=== PATIENT | female | born 1950 | race Caucasian/White ===

== ENCOUNTER → 2020-07-19 08:32 | Outpatient (CLI) | payer MEDICARE, SELFPAY ==
--- NOTE | ~2020-07-19 | US_ITS ---
EXAMINATION: US abdomen complete DATE: 07/19/2020 09:11 INDICATION: Family history of malignant neoplasm of pancreas and digestive organs. TECHNIQUE: Multiple grayscale and Doppler ultrasound images of the abdomen were obtained. COMPARISON: None FINDINGS: The visualized portions of the head and body of the pancreas are normal. The liver is carlee l without focal lesion. There is normal flow in main portal vein. The gallbladder is normal in size. No gallstones or gallbladder wall thickening. There was no sonographic Pate sign. The common duct i s normal and measures 4 mm. The spleen is normal in size. The kidneys are normal in size. IMPRESSION: 1. Normal complete abdomen ultrasound. Reviewed, dictated and finalized at location A.
== END ==
PROVIDERS: PCP Physician Assistant; Visit Provider Physician Assistant
DX: Z80.0 Family history of malignant neoplasm of digestive organs (principal)
CPT/HCPCS: 76700

== ENCOUNTER → 2021-02-09 13:20 | Outpatient (CLI) | payer MEDICARE, SELFPAY ==
--- NOTE | ~2021-02-09 | MM_ITS ---
EXAMINATION: MM screening lucio LT w david HISTORY: Screening TECHNIQUE: Craniocaudal and mediolateral oblique 3-D tomosynthesis images were obtained and synthetic 2-D images were generated. CAD analysis was submitted and interpreted. COMPARISON: Comparison to multiple prior studies sequentially, with oldest reviewed study dated 07/21. BREAST PARENCHYMAL COMPOSITION: There are scattered areas of fibroglandular density. FINDINGS: There are stable benign-appearing left breast calcifications. There is no evidence of suspi cious mass, calcification, or architectural distortion to suggest malignancy in either breast. There has been no suspicious interval change. IMPRESSION: 1. No mammographic evidence of malignancy. 2. Recommend routine screening mammography in one year. BI-RADS Category 2: Benign finding(s). Reviewed, dictated and finalized at location A.
== END ==
PROVIDERS: PCP Physician Assistant; Visit Provider Physician Assistant
DX: Z12.31 Encounter for screening mammogram for malignant neoplasm of breast (principal)
CPT/HCPCS: 77063; 77067

== ENCOUNTER 2021-08-05 12:38 | Outpatient (CLI) | payer MEDICARE, SELFPAY ==
--- NOTE | ~2021-08-05 | MR_ITS ---
EXAMINATION: MR breast BI wo con INDICATION: Patient with history of right mastectomy with implant reconstruction and possible implant rupture. TECHNIQUE: Axial T2 FSE ASSET, axial VIBRANT, Sagittal T2 FSE, Sagittal T2 STIR silicone SAT, Sagitta l STIR Water suppression COMPARISON: None FINDINGS: RIGHT BREAST: There are changes of right mastectomy with implant reconstruction. There is intracapsul ar rupture of the breast implant. No definite extracapsular silicone is identified. LEFT BREAST: Within the limitations of noncontrast examination, left breast is unremarkable. No evide nce of signal abnormalities in the axillary or internal mammary node distributions.] IMPRESSION: 1. Intracapsular rupture of the right breast implant. BI-RADS Category 2: Benign finding(s). Reviewed, dictated and finalized at location A.
== END 2021-08-05 12:39 | disposition home or self-care (01) ==
PROVIDERS: PCP Physician Assistant; Visit Provider Surgery Plastic and Reconstructive Surgery
DX: T85.49XA Other mechanical complication of breast prosthesis and implant, initial encounter (principal)
CPT/HCPCS: 77047

== ENCOUNTER 2021-09-17 01:17 | Day surgery (SDC) | payer MEDICARE, SELFPAY ==
[2021-09-09 14:16] VITALS: BMI 31.5
--- NOTE | 2021-09-09 14:55 | PC.NURSE ---
Report to the Outpatient Waiting Room, entrance under the green pavilion located off [facility], at time _0830__ on date _09/17/21__. OR Time: _1030___. - You and your visitor will be asked a series of questions to screen for COVID 19 for your protection. - A mask is required within the hospital. - Only one visitor is allowed at this time. Patient visitors will be guided where to wait when not with patient. Preoperative COVID Testing Requirements: No COVID Test needed if: (proof is required; if not received patient will have Rapid Test prior to entry) - Patient has received COVID Vaccine at least 14 days prior to procedure date or - Patient has positive COVID test result within last 90 days of surgery date. COVID Test needed if above criteria is not met If not COVID vaccinated a COVID test must be conducted within 72 hours of surgery and patient is asked to isolate self from time of testing until procedure. You will go to the [facility] for your COVID testing. The [facility] site is located at the corner of [address] from [facility]. You will only be called if COVID results are positive and your surgeon may reschedule your elective surgery date. Patients may have clear liquids (water, carbonated beverages, clear teas, apple juice) until 3 hours prior to surgery with a maximum of 20 ounces. - No food from midnight until time of surgery - Infants may have breast milk until 4 hours before surgery, formula 6 hours prior to surgery. - Children will be allowed to drink immediately following surgery. If applicable, please bring a bottle or sippy cup to assist with drinking. Juice, water, soda, and popsicles are readily available. For infants on formula, please bring formula the day of surgery. Pacifiers are allowed. Take the following medications with a SIP of water the morning of surgery: NONE Medications to discontinue per physician __PT STATS ALREADY STOPPING ASA TUESDAY-09/06/21 Date to take last dose Please no make-up, nail jordanian, hairspray, perfume, deodorant, or body powder the day of surgery. No jewelry (including any body piercings) or valuables the day of surgery, leave them at home. Please take a shower or bath the night before, or the morning of, surgery with an antibacterial soap. Wear comfortable, loose fitting clothing. Children are encouraged to wear pajamas. - Jewelry must be removed prior to entering the operating room. Rings and piercings that are not removed may be cut off. - The hospital will not accept responsibility for valuables. - Please leave all valuables, including medications, at home the day of surgery. If you are going home after surgery, a licensed box truck driver must drive you home. - NO public transportation without another adult. - We recommend that an adult stay with you for 24 hours following discharge. - We also recommend that you do not drive, make important decision, drink alcoholic beverages, or take any drugs that were not prescribed by your health care provider for at least 24 hours after your discharge time. For Pediatric surgeries, we recommend two adults accompany the child home (only one inside the building at this time). Follow any additional instructions given to you from your surgeon. Telephone instructions given to PT and asked if any additional questions and then verbalized understanding. Patient advised to call surgeon office or pre surgery nurse liaison [phone] if any additional questions.
[2021-09-17] VITALS (8 sets, daily range): BP systolic 121–145; BP diastolic 70–93; PULSE 67–100; RESP 14–16; TEMP 35.9–36.9; O2SAT 96–100
[2021-09-17 09:15] LABS: Urine Cotinine NEGATIVE
--- NOTE | 2021-09-17 09:32 | WPDANESEPPF ---
Anes - Initial Pre Proc Eval Procedure: Operation Date: 09/17/21 10:30 Proposed Procedures p Removal Bilateral Breast Implants - Yayo Cameron MD s Left Breast Reduction - Yayo Cameron MD Date/Time: 09/17/21 09:32 Surgeon: Yayo Cameron MD Pre Op Diagnosis: right breast implant rupture Patient Data Age: 71 Gender: F Height: 1.59 m Weight: 79.54 kg Allergies Allergy/AdvReac Type Severity Reaction Status Date / Time nalbuphine Allergy Severe Hallucinati Verified 09/17/21 09:12 ng venlafaxine Allergy Severe Rash Verified 09/17/21 09:12 Home Medications Medication Instructions Recorded Confirmed Type atorvastatin 20 mg tablet 20 mg PO HS 09/29/20 09/17/21 History latanoprost 0.005 % eye drops 1 drp OPHTHALMIC (EYE) QPM 09/29/20 09/17/21 History aspirin 81 mg tablet,delayed 81 mg PO DAILY 09/02/21 09/09/21 History release alprazolam [Xanax] 0.25 mg PO HS PRN 09/09/21 09/17/21 History Laboratory Tests 09/17/21 08:51 Cotinine Negative Patient hx anesthesia problems: none Family hx anesthesia problems: none Results Review: All pre-operative results and documents have been reviewed as part of the pre-operative evaluation. [facility] Past Medical History Medical History (Updated 09/17/21 @ 09:32 by Emanuel Villalta MD) Anxiety Panic attacks Surgical History Surgical History History of hysterectomy 2001 History of knee replacement right 2014 History of left hip replacement 2014 History of mastectomy right 1995 Family History Family History Father Cerebrovascular accident Family history of lung cancer Family history of coronary artery disease Sibling Family history of malignant neoplasm of breast in first degree relative Social History Social History Smoking status: Never smoker Second hand tobacco smoke exposure: No Alcohol intake: never Substance use: never Substance use type: does not use Living arrangements: with family Spiritual care concerns: No Anes - Eval Final PreProcedure Day of Procedure 09/17/21 09:32 Patient weight: obese Heart: regular rate and rhythm Lungs: clear to auscultation Airway: Mallampati scale class II Neurological: alert and oriented Last oral intake: >/= 8 hours ASA classification: III Emergent: no Anesthetic plan: proceed Anesthesia type and monitoring: general and standard monitoring Results Review: All pre-operative results and documents have been reviewed as part of the pre-operative evaluation. Informed Consent: The patient's anesthetic plan and its attendant risks and benefits were discussed with the patient/family/POA. Questions were solicited and answers provided to the satisfaction of the patient/family/POA.
--- NOTE | 2021-09-17 09:33 | WPDHPUPDATE1 ---
History and Physical Update Update Date/Time: 09/17/21 09:33 History and Physical has been reviewed, including an updated exam of the patient. There are NO changes in the patient's condition. Risks, benefits, and alternatives have been discussed and questions answered. Patient agrees to proceed with procedure.
[2021-09-17] MEDS: LACTATED RINGERS 1,000 ML 30 ML IV CONT (09:50)
[2021-09-17] MEDS: ceFAZolin 2 GM/D5W 50 ML 2 GM/50 ML BAG IVPB (10:00)
[2021-09-17] MEDS: TRANEXAMIC ACID 1,000MG/ISO100 1,000 MG/100 ML BAG 200 MG IVPB (10:15)
[2021-09-17] MEDS: LACTATED RINGERS IRRIG 1,000 ML, LIDOCAINE HCL 1% LOCAL INJ 50 ML, EPINEPHrine HCL INJ ... INFILTRATE (10:51)
[2021-09-17] MEDS: BUPIVACAINE HCL 0.25% PF 30 ML VIAL INFILTRATE (11:00)
--- NOTE | 2021-09-17 11:22 | W.PM.PROC2 ---
Procedure Note - Detailed Date of Procedure 09/17/21 Pre-op Diagnosis Acquired breast deformity History mastectomy right breast History right breast cancer history right breast reconstruction Post-op Diagnosis same Procedure Performed 1. Right breast implant removal (intact) with capsulecotmy. 2. Left breast reduction utilizing suction lipectomy 325cc Surgeon Yayo Cameron MD Anesthesia general Findings Right breast implant textured Crown. No worrisome features. Capsule sent to pathology Left breast reduction via suction lipectomy supine and while sitting 325cc. Description of Procedure Preoperatively the risks, benefits, alternatives discussed in extensive detail. I wanted her to be very realistic about the risks involved as well as expectations. We spent extensive time discussing her goals. Also discussing realistic expectations of outcome. I want her to be well informed of what we could and could not accomplish. Also want have a clear understanding of what her goals were. She understands I will not be able to accomplish her entire goal based on the constraints provided. She may need additional procedures which she would prefer not to have. This was a lengthy open-ended conversation making sure we she was well informed. Answered all of her questions to her satisfaction. Consent obtained. Patient was marked in the preoperative holding area with her verification. She was taken to the operating room placed supine on the operating room table. Anesthesia provided by anesthesiology and prepped and draped in a standard sterile fashion. Surgical time-out was taken. 1% lidocaine and 0.25% Marcaine with epinephrine was used to anesthetize as a field block. A 15 blade used to excise on the right breast previous mastectomy scar in the central portion. I continued until the implant was identified in a elevated just superficial to the capsule. Removed the majority of the capsule which was sent to pathology. The implant was intact. It was a textured implant as above. I copiously irrigated with saline solution on TUR tubing. Verified strict hemostasis. I placed a 15 Rolando drain which was brought out inferior to the axilla and sutured into place with 3-0 nylon. I closed using 2-0 Vicryl followed by 3-0 Stratafix in a running subcuticular 4-0 Monocryl and tissue glue. Patient was placed in a sitting position. Her primary concerns for lateral breast/chest wall as well as overall volume. Stab incisions were made and a tumesced with a tumescent solution. Once adequate time for hemostasis completed suction lipectomy of the left breast/lateral chest for symmetry with a 5mm basket cannula based on S.A.F.E. techique. This was on multiple planes and passes also based on rolling pinch test compared to the contralateral side. I maximized the symmetry to the best my ability. Closed port sites using a 4-0 nylon. She was awoke and taken to the PACU without difficulty. All instrument sponge counts were correct at the end of the case. Estimated Blood Loss 20 Drains No Packing No Pathology yes (Right breast capsule) Complications No immediate complications Condition stable Disposition PACU
[2021-09-17] MEDS: LIDO 1%/EPINEPHRINE/PF 1:200,000 30 ML VIAL INFILTRATE (11:23)
[2021-09-17] MEDS: ACETAMINOPHEN 500 MG TABLET 1000 MG PO (12:33)
== END 2021-09-17 13:35 | disposition home or self-care (01) ==
PROVIDERS: PCP Physician Assistant; Visit Provider Surgery Plastic and Reconstructive Surgery
PROC: 0HPT0JZ Removal of Synthetic Substitute from Right Breast, Open Approach (ICD-10-PCS; CPT 19371; principal; 2021-09-17 10:30)
PROC: 0HBV0ZZ Excision of Bilateral Breast, Open Approach (ICD-10-PCS; CPT 19318; 2021-09-17 10:30)
DX: Z45.811 Encounter for adjustment or removal of right breast implant (principal); Z85.3 Personal history of malignant neoplasm of breast; Z90.11 Acquired absence of right breast and nipple; F41.9 Anxiety disorder, unspecified; Z79.82 Long term (current) use of aspirin; E66.9 Obesity, unspecified; Z68.31 Body mass index [BMI] 31.0-31.9, adult; Z79.899 Other long term (current) drug therapy
CPT/HCPCS: 19371; 19318; 80307; 88304; A9270; J0171; J0690; J2250; J2270; J2405; J2704; J7120

== ENCOUNTER 2021-11-01 08:55 | Emergency (ER) | payer MEDICARE, SELFPAY ==
[2021-11-01 09:07] VITALS: BP 134/88; PULSE 85; RESP 16; TEMP 37.1; O2SAT 99
[2021-11-01 09:08] VITALS: BP 134/88; PULSE 85; RESP 16; TEMP 37.1; O2SAT 99
--- NOTE | 2021-11-01 09:11 | ED.URI ---
HPI - URI/Sore Throat General Chief Complaint: Upper Respiratory Infection Stated Complaint: sinus infection Time Seen by Provider: 11/01/21 09:30 Source: patient and RN notes reviewed Mode of arrival: ambulatory Limitations: no limitations History of Present Illness HPI Narrative: 71-year-old female presents with concern for 2-week history of sinus Rusher, sinus pain, sinus congestion, headache, cough, ear pain, tooth pain, thick mucus. Reports she has been taking Mucinex. She reports cough is worsening. She reports she has had 2 - Covid test over the course of her illness. MD elicited complaint: cough and sore throat Related Data Home Medications Medication Instructions Recorded Confirmed atorvastatin 20 mg tablet 20 mg PO HS 09/29/20 11/01/21 latanoprost 0.005 % eye drops 1 drp OPHTHALMIC (EYE) QPM 09/29/20 11/01/21 aspirin 81 mg tablet,delayed 81 mg PO DAILY 09/02/21 09/09/21 release alprazolam [Xanax] 0.25 mg PO HS PRN 09/09/21 09/17/21 Allergies Allergy/AdvReac Type Severity Reaction Status Date / Time nalbuphine Allergy Severe Hallucinati Verified 11/01/21 09:25 ng venlafaxine Allergy Severe Rash Verified 11/01/21 09:25 Review of Systems Review of Systems: CONSTITUTIONAL: Denies malaise. Denies chills, sweats, or fever. EYES: Denies visual changes, redness, or discharge. ENT: Reports rhinorrhea, congestion, sinus pain, otalgia. Denies sore throat. CARDIOVASCULAR: Denies chest pain, palpitations, or edema. RESPIRATORY: Reports cough. Denies dyspnea. GASTROINTESTINAL: Denies abdominal pain, nausea, vomiting, diarrhea SKIN: Denies rash or itching. MUSCULOSKELETAL: Reports myalgia. NEUROLOGIC: Reports headache. All systems reviewed & are unremarkable except as noted in HPI and below PMFSH Past Medical History Medical History Anxiety Panic attacks Surgical History Surgical History History of hysterectomy 2001 History of knee replacement right 2014 History of left hip replacement 2014 History of mastectomy right 1995 Family History Family History Father Cerebrovascular accident Family history of lung cancer Family history of coronary artery disease Sibling Family history of malignant neoplasm of breast in first degree relative Social History Social History Second hand tobacco smoke exposure: No Alcohol intake: never Substance use: never Substance use type: does not use Spiritual care concerns: No Comments At time of signature, agree with nursing past medical, surgical, social and family history. There is no relevant family history pertinent to the presenting complaint Exam Narrative: GENERAL: Well-appearing, well-nourished, and in no acute distress. HEAD: Normocephalic EYES: PERRLA, conjunctivae clear ENT: Nares clear, turbinates edematous and erythematous, sinus tenderness. Mucous membranes moist. TM pearly manning with dull light reflex bilaterally; no tragal tenderness. Oropharynx not erythematous without lesions. Tonsils not enlarged and without exudate, no drooling, no hoarseness, no trismus, uvula midline. NECK: Supple. No lymphadenopathy CHEST: Clear to auscultation, breath sounds equal. No wheezing, rhonchi, rales, or stridor. No respiratory distress, speaks in full sentences. Cough noted HEART: Regular rate and rhythm. No murmur heard. SKIN: Warm, dry, no rash. NEURO: Alert and oriented x3. PSYCH: Normal mood and affect Course Course Emergency Course: Patient is aware of diagnosis, understands and agrees to treatment plan. Anticipatory guidance given. Patient agrees to follow-up as directed and is aware of reasons to seek care at the emergency department. Portions of this record may have been created with voice recognition software
== END 2021-11-01 09:45 | disposition home or self-care (01) ==
PROVIDERS: Emergency Provider Nurse Practitioner; PCP Physician Assistant
DX: J01.90 Acute sinusitis, unspecified (principal); F41.9 Anxiety disorder, unspecified; F41.0 Panic disorder [episodic paroxysmal anxiety]; Z96.651 Presence of right artificial knee joint; Z96.642 Presence of left artificial hip joint; Z90.10 Acquired absence of unspecified breast and nipple; Z79.82 Long term (current) use of aspirin
CPT/HCPCS: 99213; G0463

== ENCOUNTER → 2022-10-13 10:16 | Outpatient (CLI) | payer MEDICARE, SELFPAY ==
--- NOTE | ~2022-10-13 | CT_ITS ---
EXAMINATION: CT diagnostic chest wo con DATE: 10/13/2022 10:27 INDICATION: History of exposure to secondhand smoke TECHNIQUE: Computed tomography (CT) of the chest was performed without intravenous contrast. The dose -length product (DLP) was 97.26 mGy-cm. Automated exposure control and iterative reconstruction techn ique were employed. COMPARISON: None FINDINGS: The lungs are free of acute opacities. No pleural effusion or pneumothorax. There are hernadez es of right mastectomy and right axillary lymph node dissection. There is a 6 mm nodule of the left t hyroid lobe. No pathologically enlarged thoracic lymph nodes are identified. The heart size is normal . There is moderate thoracic spondylosis. IMPRESSION: 1. No acute cardiopulmonary abnormality. Reviewed, dictated and finalized at location A. N RESOURCES RECEPTIONIST
== END ==
PROVIDERS: PCP Physician Assistant; Visit Provider Physician Assistant
DX: Z77.22 Contact with and (suspected) exposure to environmental tobacco smoke (acute) (chronic) (principal)
CPT/HCPCS: 71250

== ENCOUNTER → 2022-10-29 14:10 | Outpatient (CLI) | payer MEDICARE, SELFPAY ==
--- NOTE | ~2022-10-29 | MMUS_ITS ---
EXAMINATION: MM diagnostic lucio LT w david, US breast LT complete HISTORY: Pruritus of left breast, upper outer quadrant pain. Status post right mastectomy for breast malignancy. TECHNIQUE: ML, MLO, CC, rotated lateral CC 3-D tomosynthesis images of the left breast were performed and synthetic 2-D images were generated. CAD analysis was submitted and interpreted. High resolution complete left breast ultrasound examination including all 4 quadrants and subareolar area was perfor med. COMPARISON: 08/05/2021 MRI breast examination 02/10/2000 left screening mammogram BREAST PARENCHYMAL COMPOSITION: There are scattered areas of fibroglandular density. FINDINGS: MAMMOGRAPHIC FINDINGS: No suspicious mass or architectural distortion, malignant calcification, skin thickening or retractio n or significant new or developing density is detected. Scattered benign calcifications are again pre sent. ULTRASOUND: 6:00 subareolar area: 2 x 3.2 x 3.5 mm sonolucency with through transmission and posterior enhancemen t consistent with small cyst 8:00 6 cm from nipple: 3.1 x 2.2 x 2.7 mm sonolucency, without internal vascularity posterior shadowi ng, likely a small cyst or other benign process Subareolar area: 4.6 x 3.5 x 5 mm sonolucent or hypoechoic lesion with through transmission, no inter nal vascularity, consistent with simple cysts are benign appearing solid lesion IMPRESSION: 1. Benign findings 2. Routine annual mammographic screening is recommended BI-RADS Category 2: Benign finding(s). Reviewed, dictated and finalized at location A. ARD/STEWARDESS WINE IMPRESSION: 1. Benign findings 2. Routine annual mammographic screening is recommended BI-RADS Category 2: Benign finding(s).
== END ==
PROVIDERS: PCP Physician Assistant; Visit Provider Physician Assistant
DX: L29.9 Pruritus, unspecified (principal); N64.4 Mastodynia
CPT/HCPCS: 76641; 77061; 77065; G0279

== ENCOUNTER → 2023-06-11 09:06 | Outpatient (CLI) | payer MEDICARE, SELFPAY ==
--- NOTE | ~2023-06-11 | MR_ITS ---
EXAMINATION: MR hip RT wo con DATE: 06/11/2023 10:16 INDICATION: Right hip pain. TECHNIQUE: Magnetic resonance imaging (MRI) of the right hip was performed without intravenous contra st. COMPARISON: None FINDINGS: Bones/cartilage: There is a left hip arthroplasty. Right hip demonstrates partial thickness cartilage loss, deep poste rosuperiorly. There are right hip osteophytes. Labrum: There is a tear of the right acetabular labrum. Fluid: There is no hip joint effusion. No trochanteric bursitis. Soft tissues: The right gluteus minimus and gluteus medius tendons are normal. The right iliopsoas tendon is normal . There is mild tendinopathy of the hamstring origins bilaterally. IMPRESSION: 1. Moderate right hip osteoarthritis. Reviewed, dictated and finalized at location E.
== END ==
PROVIDERS: PCP Orthopaedic Surgery; Visit Provider Physician Assistant Surgical
DX: M16.11 Unilateral primary osteoarthritis, right hip (principal)
CPT/HCPCS: 73721

== ENCOUNTER 2023-06-21 07:54 | Outpatient (CLI) | payer MEDICARE, SELFPAY ==
--- NOTE | 2023-06-21 08:52 | ECG_ITS ---
Measurements Intervals [place] Rate: 63 P: 52 GA: 176 QRS: -8 QRSD: 83 T: 52 QT: 431 QTc: 444 Interpretive Statements SINUS RHYTHM MINIMAL VOLTAGE CRITERIA FOR LVH, CONSIDER NORMAL VARIANT [MEETS CRITERIA IN ONE OF: R(aVL), S(V1), R(V5), R(V5/V6)+S(V1)] NO PREVIOUS ECG AVAILABLE FOR COMPARISON Electronically Signed On 06-21-2023 11:27:31 CDT by Kaitlin Medina M.D.
[2023-06-21 09:31] LABS: Basophils Absolute Auto 0.1 K/mm3 (0.0-0.1); Basophils Percent Auto 0.9 % (0.2-1.2); Eosinophils Absolute Auto 0.2 K/mm3 (0-0.3); Eosinophils Percent Auto 2.7 % (0-4.4); Hematocrit 42.1 % (37.0-47.0); Hemoglobin 13.6 g/dL (12.0-15.0); Immature Granulocyte Absolute 0.03 K/mm3 (0.00-0.031); Immature Granulocyte Percent A 0.4 % (0-0.5); Lymphocytes Percent Auto 33.1 % (18.3-44.2); Mean Corpuscular HGB Conc 32.3 g/dl (32-36); Mean Corpuscular Hemoglobin 28.8 pg (26-34); Mean Corpuscular Volume 89.2 fl (80-100); Mean Platelet Volume 11.3 fl (7.4-10.4); Monocytes Absolute Auto 0.6 K/mm3 (0.1-0.6); Monocytes Percent Auto 7.7 % (2.6-8.5); Neutrophils Absolute Auto 4.5 K/mm3 (1.3-6.7); Neutrophils Percent Auto 55.2 % (45.5-73.1); Platelet Count Result 266 k/mm3 (150-375); Red Blood Count 4.72 M/mm3 (4.2-5.4); Red Cell Distribution Width 13.2 % (11.5-14.5); White Blood Count 8.2 K/mm3 (4.5-10.0)
[2023-06-21 09:51] LABS: Urine Cotinine NEGATIVE
[2023-06-21 09:52] LABS: Albumin Level 4.2 g/dL (3.5-5.1); Anion Gap 4 mmol/L (8-16); Blood Urea Nitrogen 16 mg/dL (7-17); Calcium 8.9 mg/dL (8.4-10.2); Carbon Dioxide 30 mmol/L (22-30); Chloride 102 mmol/L (98-107); Estimated Glomerular Filt Rate > 60; Glucose 95 mg/dL (65-110); Potassium 4.1 mmol/L (3.4-5.0); Sodium 136 mmol/L (137-145)
[2023-06-21 09:54] LABS: Hemoglobin A1C 5.6 % (<5.7)
== END 2023-06-21 07:55 | disposition home or self-care (01) ==
LOC: ANHSURGERY 07:59
PROVIDERS: PCP Physician Assistant; Visit Provider Orthopaedic Surgery
DX: M16.11 Unilateral primary osteoarthritis, right hip (principal); Z01.818 Encounter for other preprocedural examination
CPT/HCPCS: 80048; 80307; 82040; 83036; 85025; 86850; 86900; 86901; 87081; 93005

== ENCOUNTER 2023-06-27 02:34 | Day surgery (SDC) | payer MEDICARE, SELFPAY ==
[2023-06-21 08:14] VITALS: BP 140/76; PULSE 64; RESP 16; TEMP 37.1; O2SAT 99; BMI 32.5
--- NOTE | 2023-06-21 08:31 | PC.NURSE ---
Report to the Outpatient Waiting Room, entrance under the green pavilion located off [facility], at time __6:00AM on date __06/27/23 . Planned Procedure Time: _7:30AM . Time changes happen often and if your time is changed the preop area will call you the afternoon before. - You and your visitor will be asked to self-screen and do not enter if you have any COVID symptoms. - A mask is optional within the hospital at this time. Patients may have clear liquids (water, carbonated beverages, clear teas, apple juice) until 3 hours prior to surgery with a maximum of 20 ounces. - No food from midnight until time of surgery Take the following medications with a SIP of water the morning of surgery: ___ALPRAZOLAM NEEDED, BUSPIRONE DO NOT STOP ANY OF YOUR OTHER PRESCRIPTION MEDICATIONS PRIOR TO SURGERY ?EXCEPT THE FOLLOWING Medications to discontinue per physician ____HOLD VITAMINS/SUPPLEMENTS 3 DAYS PRE-OP PER ANESTHESIA Date to take last dose____06/23/23 Please no make-up, nail german, hairspray, perfume, deodorant, or body powder the day of surgery. No jewelry (including any body piercings) or valuables the day of surgery, leave them at home. Please take a shower or bath the night before, or the morning of, surgery with an antibacterial soap. Wear comfortable, loose fitting clothing. Children are encouraged to wear pajamas. - Jewelry must be removed prior to entering the operating room. Rings and piercings that are not removed may be cut off. - The hospital will not accept responsibility for valuables. - Please leave all valuables, including medications, at home the day of surgery. If you are going home after surgery, a licensed services delivery driver must drive you home. - NO public transportation without another adult if you receive anesthesia. - We recommend that an adult stay with you for 24 hours following discharge. - We also recommend that you do not drive, make important decision, drink alcoholic beverages, or take any drugs that were not prescribed by your health care provider for at least 24 hours after your discharge time Follow any additional instructions given to you from your surgeon. If you or anyone in your household have experienced Covid symptoms in the past week, please notify your surgeon or the nurse liaison at the phone number below for possible testing. Telephone instructions given to __PATIENT and asked if any additional questions and then verbalized understanding. Patient advised to call surgeon office or pre surgery nurse liaison [phone] if any additional questions.
--- NOTE | 2023-06-24 12:36 | PM.IMHP ---
H&P: HPI History of Present Illness Date/Time: 06/24/23 12:36 Chief Complaint: Right hip DJD Narrative: 73-year-old female who presents today for right anterior total hip arthroplasty. She started having symptoms in the right hip and groin area in December of this year. She has had continued symptoms since that time. She has tried different anti-inflammatories without improvement of her symptoms. She has had an MRI scan recently of the hip which shows significant cartilage loss in the posterior superior aspect of the joint. Patient is having symptoms on a daily basis. It is affecting her daily lifestyle. She feels at this point she would like to proceed with total hip arthroplasty rather continue nonsurgical treatment. Review of Systems Review of Systems: All systems reviewed & are unremarkable except as noted in HPI and below PMFSH Past Medical History Medical History Anxiety Panic attacks Surgical History Surgical History History of hysterectomy 2001 History of knee replacement right 2014 History of left hip replacement 2015 History of mastectomy right 1995 Family History Family History Father Cerebrovascular accident Family history of lung cancer Family history of coronary artery disease Sibling Family history of malignant neoplasm of breast in first degree relative Social History Social History Smoking status: Never smoker Second hand tobacco smoke exposure: No Alcohol intake: never Substance use: never Substance use type: does not use Living arrangements: with family Additional living arrangements comments: HUSB Spiritual care concerns: No Meds Home Medications and Allergies Home Medications Medication Instructions Recorded Confirmed Type atorvastatin 20 mg tablet 20 mg PO HS 09/29/20 06/21/23 History latanoprost 0.005 % eye drops 1 drp ophthalmic (eye) QPM 09/29/20 06/21/23 History alprazolam 1 mg tablet (Xanax) 0.25 mg PO HS PRN Anxiety 09/09/21 06/21/23 History buspirone 15 mg tablet 7.5 mg PO BID 06/21/23 06/21/23 History collagen,hydrolysate 500 mg-biotin 1 cap PO HS 06/21/23 06/21/23 History 800 mcg-ascorbic acid 50 mg capsule magnesium 500 mg tablet 15 mg PO DAILY 06/21/23 06/21/23 History omega-3 fatty acids-vitamin E 1 cap PO DAILY 06/21/23 06/21/23 History 1,000 mg capsule Allergies Allergy/AdvReac Type Severity Reaction Status Date / Time nalbuphine Allergy Severe Hallucinati Verified 06/21/23 08:05 ng venlafaxine Allergy Severe Rash, Verified 06/21/23 08:05 BLISTERS Exam Narrative: 73-year-old female she is 5 ft 2 and 180 lb. She reports no numbness or tingling to light touch right lower extremity. Flexion of the hip is to 90 with moderately severe groin pain. Internal rotation 10? with moderate groin pain. She is able to flex the hip to 120? completely. External rotation of 30?. Negative Stinchfield maneuver. Normal abduction strength in lateral position. Nontender over the greater trochanter. 2+ dorsalis pedis and posterior artery pulse. Resp: Auscultation: clear to auscultation bilaterally Cardio: Rate: regular rate Rhythm: regular rhythm Assessment and Plan Assessment and plan (1) Hip arthritis: Code(s): M16.10 - Unilateral primary osteoarthritis, unspecified hip Status: Acute Plan 73-year-old female who has moderately severe osteoarthritis of the right hip seen best on the MRI scan. She has had continued symptoms since December of this year without improvement from anti-inflammatories and rest. Patient has had her left hip replaced in the past and feels she would rather proceed with total hip arthroplasty at this point rather continue any nonsurgical treatment. Surgica
[2023-06-27] VITALS (18 sets, daily range): BP systolic 111–154; BP diastolic 63–95; PULSE 75–96; RESP 13–20; TEMP 36.1–37.1; O2SAT 2–100
--- NOTE | ~2023-06-27 | XR_ITS ---
XR hip RT 1V w AP pelvis DATE: 06/27/2023 11:26 INDICATION: Right total hip replacement TECHNIQUE: AP pelvis and crosstable lateral view right hip COMPARISON: None FINDINGS: There is subcutaneous emphysema around the right hip. Consistent with postoperative change from right total hip arthroplasty. No fracture or dislocation. Normal alignment of the right acetabul ar and femoral prosthetic components. Status post left total hip arthroplasty. The pubic symphysis and sacroiliac joints are intact. No pelvic or right hip fracture or dislocation. Surgical clips overlie both sides of the pelvis and both lower quadrants IMPRESSION: Status post bilateral total hip arthroplasty Reviewed, dictated and finalized at location B.
--- NOTE | ~2023-06-27 | XR_ITS ---
EXAMINATION: XR surgery orthopedic DATE: 06/27/2023 11:04 INDICATION: Anterior approach right total hip arthroplasty TECHNIQUE: 1 fluoroscopic image of the right hip was obtained during procedure performed by Dr. Jeannie vieira. Radiologist was not present for the imaging or procedure. The amount of fluoroscopy time used dur ing this procedure was 1.2 minutes. COMPARISON: MR dated 06/11/2023 FINDINGS: Interval placement of a noncemented right total hip arthroplasty which appears in near-anatomic align ment on the single frontal projection provided. No fracture. Expected small amount of soft tissue gas at the operative bed. A few surgical clips in the right hemipelvis. IMPRESSION: 1. Fluoroscopy utilized during placement of a right total hip arthroplasty which appears in near-ney omic alignment. Reviewed, dictated and finalized at location A. IMPRESSION: 1. Fluoroscopy utilized during placement of a right total hip arthroplasty whic h appears in near-anatomic alignment.
[2023-06-27] MEDS: ACETAMINOPHEN 500 MG TABLET 1000 MG PO ×3 (06:13→17:54)
[2023-06-27] MEDS: VANCOMYCIN 1,250 MG/NS 250 ML BAG 166.67 MG IVPB (06:50)
[2023-06-27] MEDS: LACTATED RINGERS 1,000 ML 30 ML IV CONT ×2 (06:50→12:30)
--- NOTE | 2023-06-27 07:03 | WPDANESEPPF ---
Anes - Initial Pre Proc Eval Procedure: Operation Date: 06/27/23 07:30 Proposed Procedures p Right Total Hip Arthroplasty, Anterior Approach - Bryan Enriquez MD Date/Time: 06/27/23 07:03 Surgeon: Bryan Enriquez MD Pre Op Diagnosis: oa right hip Patient Data Age: 73 Gender: F Height: 1.58 m Weight: 80.5 kg Last Vital Signs Temp 36.3 C L 06/27/23 06:19 Pulse 82 06/27/23 06:19 Resp 16 06/27/23 06:19 BP 154/95 H 06/27/23 06:19 Pulse Ox 99 06/27/23 06:19 O2 Del Method Room Air 06/27/23 06:19 Allergies Allergy/AdvReac Type Severity Reaction Status Date / Time nalbuphine Allergy Severe Hallucinati Verified 06/27/23 06:10 ng venlafaxine Allergy Severe Rash, Verified 06/27/23 06:10 BLISTERS Home Medications Medication Instructions Recorded Confirmed Type atorvastatin 20 mg tablet 20 mg PO HS 09/29/20 06/27/23 History latanoprost 0.005 % eye drops 1 drp ophthalmic (eye) QPM 09/29/20 06/27/23 History alprazolam 1 mg tablet (Xanax) 0.25 mg PO HS PRN Anxiety 09/09/21 06/27/23 History buspirone 15 mg tablet 7.5 mg PO BID 06/21/23 06/27/23 History collagen,hydrolysate 500 mg-biotin 1 cap PO HS 06/21/23 06/27/23 History 800 mcg-ascorbic acid 50 mg capsule magnesium 500 mg tablet 15 mg PO DAILY 06/21/23 06/27/23 History omega-3 fatty acids-vitamin E 1 cap PO DAILY 06/21/23 06/27/23 History 1,000 mg capsule Patient hx anesthesia problems: none Family hx anesthesia problems: none Results Review: All pre-operative results and documents have been reviewed as part of the pre-operative evaluation. [facility] Past Medical History Medical History (Updated 06/27/23 @ 07:07 by Venancio Wilkins DO) Anxiety Glaucoma History of breast cancer Hyperlipidemia MILLER (obstructive sleep apnea) Panic attacks Surgical History Surgical History (Updated 11/23/21 @ 10:44 by Yayo Cameron MD) History of hysterectomy 2002 History of knee replacement right 2015 History of left hip replacement 2014 History of mastectomy right 1996 Family History Family History Father Cerebrovascular accident Family history of lung cancer Family history of coronary artery disease Sibling Family history of malignant neoplasm of breast in first degree relative Social History Social History Smoking status: Never smoker Second hand tobacco smoke exposure: No Alcohol intake: never Substance use: never Substance use type: does not use Living arrangements: with family Additional living arrangements comments: HUSB Spiritual care concerns: No Anes - Eval Final PreProcedure Day of Procedure 06/27/23 07:03 Patient weight: obese Heart: regular rate and rhythm Lungs: clear to auscultation Airway: Mallampati scale class 1 Neurological: alert and oriented Last oral intake: >/= 8 hours ASA classification: III Emergent: no Anesthetic plan: proceed Anesthesia type and monitoring: general ETT and standard monitoring Results Review: All pre-operative results and documents have been reviewed as part of the pre-operative evaluation. Informed Consent: The patient's anesthetic plan and its attendant risks and benefits were discussed with the patient/family/POA. Questions were solicited and answers provided to the satisfaction of the patient/family/POA.
[2023-06-27] MEDS: TRANEXAMIC ACID 1,000MG/ISO100 1,000 MG/100 ML BAG 200 MG IVPB (07:04)
--- NOTE | 2023-06-27 07:16 | WPDHPUPDATE1 ---
History and Physical Update Update Date/Time: 06/27/23 07:16 History and Physical has been reviewed, including an updated exam of the patient. There are NO changes in the patient's condition. Risks, benefits, and alternatives have been discussed and questions answered. Patient agrees to proceed with procedure.
[2023-06-27] MEDS: ceFAZolin 2 GM/D5W 50 ML 2 GM/50 ML BAG IVPB (07:34)
[2023-06-27] MEDS: ceFAZolin SODIUM 1 GM VIAL 3 GM (08:25)
[2023-06-27] MEDS: ceFAZolin SODIUM 1 GM VIAL 2 GM IV PUSH (10:54)
[2023-06-27] MEDS: TRANEXAMIC ACID 1,000 MG/10 ML AMPUL 1000 MG IV PUSH (10:55)
--- NOTE | 2023-06-27 11:34 | P.OPB_ITS ---
Procedure Note - Brief Procedure Note - Brief Date of procedure: 06/27/23 oa right hip Procedure performed: Right anterior total hip arthroplasty Surgeon: CHANELL Rodriguez Findings: 73-year-old female underwent right anterior total hip arthroplasty on 06/27. I was involved in the procedure including positioning the patient on the OR table as well as 1st assistant professor of communication to the time of surgery. Total time spent was 4 hours
[2023-06-27] MEDS: fentaNYL CITRATE INJ (*CRX) 100 MCG/2 ML VIAL 25 MCG IV PUSH ×2 (11:54→12:01)
--- NOTE | 2023-06-27 12:10 | W.PM.PROC2 ---
Procedure Note - Detailed Date of Procedure 06/28/23 Pre-op Diagnosis oa right hip Post-op Diagnosis Same Procedure Performed Direct anterior approach right total hip arthroplasty Surgeon Bryan Enriquez MD Medical Insurance Clerk RAJIV Anesthesia General Description of Procedure this dictation is delayed 1 day due to the fact that I could not log in to the [email or web address] system yesterday with greater than 10 attempts on 6 different computers. Log in system seems to work well today. Patient was brought to the operating room and general anesthesia was administered. She received 2 g of Ancef weight based vancomycin 1 g of tranexamic acid preoperatively. The feet were padded and the boots applied and [facility] right hip prepped draped usual fashion. A 10 cm longitudinal incision was made started 3 cm lateral to the ASIS. Dissection was carried down to the fascia over the tensor fascia sudheer which was longitudinally incised over the midportion elevated off the anterior 1/2 the TFL muscle. Interval be due TFL and rectus femoris developed. Crossing vessels of ascending lateral femoral circumflex vessels were isolated ligated with suture divided. Retractor was placed anterior to the capsule. The hip abducted internally rotated and gluteus minimus elevated off the lateral capsule. Inverted T capsulotomy was made and a femoral neck osteotomy made according to preoperative templating. Femoral head measured 44 mm in diameter. Acetabulum was exposed labrum size. She had a small loose fragment representing the posterior superior acetabular rim likely insufficiency fracture there. the leg was externally rotated and extended and a Minimal recession the conjoined tendon enough to expose the medial portion saddle was performed. with a leg bag horizontal and traction external rotation acetabulum was exposed and medialized 40 Reamer and reamed up to 47 with a light reaming with 48 Reamer. This gave good circumferential contact with the reaming. The 48 pinnacle cup was chosen and impacted and 40? of abduction Using fluoroscopy to guide cup alignment and anteversion such at the cup shell was just on the anterior rim of the acetabulum if he mm proper the posterior rim. Single screw was placed in the ilium. 32 mm inner diameter polyethylene liner was placed. Leg was externally rotated extended with the table in place and the proximal femur exposed and we broached up to a size 6. We trialed with the standard neck and 1.5 mm x 32 head. Under x-ray, this like that her about 2 mm compared to the other side and on shuck, this seemed to be a little bit lose with lateral shuck and I felt that increasing the offset to 5 mm head be appropriate. The broach was countersunk 4 mm and we trialed with a +5 which she equal leg lengths offset appropriate soft tissue tension to longitudinal lateral traction excellent stability. We calcar planed and the size 6 Actis standard stem was fully seated. There are no cracks femoral neck excellent stem stability we trialed in the 5 again was appropriate. We placed the size +5 x 32 mm ceramic and clean dry trunnion after irrigation with antibiotic solution hip reduced ability reconfirmed. Fluoroscopic x-ray was obtained. the capsular flaps were reapproximated superiorly with 2. Vicryl. Local anesthetic cocktail injected. Fascia was closed with running 1. Vicryl drain in the subcu skin would to subcutaneous Vicryl and glue. I remember correctly EBL was about 350 cc. I think she received 125 Actis Cell Saver. At the time of wound closure to additional g of Ancef 1 TXA was administered. There were no complications. I felt that the bone quality and fixation were such that we could allow her to be weight-bearing as tolerated with a walker postoperative. Estimated Blood Loss -650.0
[2023-06-27] MEDS: MIDAZOLAM HCL (*CRX) 2 MG/2 ML VIAL IV PUSH (12:15)
--- NOTE | 2023-06-27 12:22 | SUR.PHASEII ---
[address] Wilkins patient very anxious he gave versed order
[2023-06-27] MEDS: KETOROLAC 15 MG/ML VIAL (*BKC) 7.5 MG IV PUSH ×2 (12:41→17:55)
[2023-06-27] MEDS: HYDROmorphone HCL INJ (*CRX) 1 MG/ML SYR 0.5 MG IV PUSH ×2 (13:00→13:12)
--- NOTE | 2023-06-27 13:08 | SUR.PHASEI ---
1240 Dr Enriquez was bedside pillow placed under right let ice was placed to hip upon arrival to pacu 1255 Dr Wilkins bedside to access additional pain medication ordered
[2023-06-27 17:44] LABS: Vitamin D 25 Hydroxy 18.7 ng/mL
[2023-06-27] MEDS: ceFAZolin 1 GM/NS 50 ML 1 GM/50 ML BAG IVPB ×2 (17:54→22:37)
[2023-06-27] MEDS: SENNA/DOCUSATE SODIUM TABLET 2 TAB PO (17:54)
[2023-06-27] MEDS: oxyCODONE HCL (*CRX) 5 MG TAB IR PO ×2 (17:55→21:20)
--- NOTE | 2023-06-27 18:24 | ADMGEN ---
This patient, Winnie Colin, was admitted to [facility] Surg Room 314-01. Patient/family oriented to hospital policies and general routines including ID bracelet, bed and alarms, visiting hours, pain management, procedures, bathroom and other care routines, personal items, smoking policy, room service/diet, and visiting hours. Information on how to activate the Rapid Response Team has been discussed. Patient/Family are encouraged to report perceived risks to care and to ask questions if they do not understand what they are told or what they should do.
--- NOTE | 2023-06-27 20:10 | PC.NURSE ---
Pt had orders for toradol. Day project finance analyst stated that the orders were supposed to be for 1800 and 0000 per report from PESTICIDE CONTROL INSPECTOR. project finance analyst stated she would keep an eye out for orders and change them when they came through. Toradol was administered @ 1755 for 1800 dose. When reviewing chart this RN noticed orders had not been changed as previously stated that they would be. This RN spoke with lieutenant shift supervisor furnace charger and she put in new orders to accommodate the correct timing. She states she will notify provider of order change. lieutenant shift supervisor RN made aware of change.
[2023-06-27] MEDS: VANCOMYCIN 1,000 MG/NS 250 ML 1,000 MG/250 ML BAG 250 MG IVPB (21:13)
[2023-06-27] MEDS: ATORVASTATIN 20 MG TABLET PO (21:18)
[2023-06-27] MEDS: busPIRone HCL 2.5 MG, busPIRone HCL 5 MG 7.5 MG PO (21:18)
[2023-06-27] MEDS: FAMOTIDINE 20 MG TABLET PO (21:19)
[2023-06-28 00:09] VITALS: BP 108/51; PULSE 75; RESP 16; TEMP 36.4; O2SAT 96
[2023-06-28] MEDS: ACETAMINOPHEN 500 MG TABLET 1000 MG PO ×2 (00:37→05:12)
[2023-06-28] MEDS: KETOROLAC 15 MG/ML VIAL (*BKC) 7.5 MG IV PUSH (01:25)
[2023-06-28] MEDS: oxyCODONE HCL (*CRX) 5 MG TAB IR PO ×3 (02:10→08:44)
[2023-06-28 04:09] VITALS: BP 111/67; PULSE 64; RESP 18; TEMP 36.2; O2SAT 97
[2023-06-28] MEDS: VANCOMYCIN 1,000 MG/NS 250 ML 1,000 MG/250 ML BAG 250 MG IVPB (05:12)
[2023-06-28 06:12] LABS: Basophils Percent Auto 0.3 % (0.2-1.2); Eosinophils Percent Auto 0.2 % (0-4.4); Hematocrit 32.4 % (37.0-47.0); Hemoglobin 10.6 g/dL (12.0-15.0); Immature Granulocyte Absolute 0.04 K/mm3 (0.00-0.031); Immature Granulocyte Percent A 0.3 % (0-0.5); Lymphocytes Absolute Auto 2.14 K/mm3 (0.9-3.2); Lymphocytes Percent Auto 18.4 % (18.3-44.2); Mean Corpuscular HGB Conc 32.7 g/dl (32-36); Mean Corpuscular Hemoglobin 29.5 pg (26-34); Mean Corpuscular Volume 90.3 fl (80-100); Mean Platelet Volume 11.6 fl (7.4-10.4); Monocytes Percent Auto 8.3 % (2.6-8.5); Neutrophils Absolute Auto 8.5 K/mm3 (1.3-6.7); Neutrophils Percent Auto 72.5 % (45.5-73.1); Platelet Count Result 213 k/mm3 (150-375); Red Blood Count 3.59 M/mm3 (4.2-5.4); Red Cell Distribution Width 13.2 % (11.5-14.5); White Blood Count 11.7 K/mm3 (4.5-10.0)
[2023-06-28 06:22] LABS: Anion Gap 4 mmol/L (8-16); Blood Urea Nitrogen 9 mg/dL (7-17); Carbon Dioxide 30 mmol/L (22-30); Chloride 101 mmol/L (98-107); Estimated CRCL calculation 63 ml/min; Estimated Glomerular Filt Rate > 60; Glucose 104 mg/dL (65-110); Potassium 3.4 mmol/L (3.4-5.0); Sodium 135 mmol/L (137-145)
--- NOTE | 2023-06-28 06:40 | PM.PNORT ---
Subjective Subjective Date/Time Seen: 06/28/23 06:40 Interval history: Postop day 1 patient is alert. She has been afebrile vital signs are stable. Pain is well controlled. Her drain will be removed this morning. Neurovascularly she is intact. There is no drainage on the dressing. Patient was having quite a bit of pain he in in the recovery room which quickly in improved after they used dilaulid on her pain has been well controlled since then. She was up walking yesterday with physical therapy and was very comfortable and happy. This morning she is extremely happy as well. We will plan have patient work therapy this morning and then discharged home later this morning. Patient's vitamin-D was found to be low at 18 7. We are supplementing this. Patient was also advised to start taking Citracal vitamin-D on a daily basis. She has a known history of osteopenia Objective Data Vital Signs Vital Signs: Vital Signs - 24 hr 06/27/23 11:25 06/27/23 11:40 06/27/23 11:55 Temperature 36.8 C Pulse Rate 77 96 81 Respiratory Rate 20 18 13 Blood Pressure 117/71 150/84 H 141/85 H Pulse Oximetry 100 100 100 Oxygen Delivery Simple Face Mask Simple Face Mask Simple Face Mask Oxygen Flow Rate 10 10 8 06/27/23 12:10 06/27/23 12:25 06/27/23 12:40 Temperature Pulse Rate 86 86 Respiratory Rate 16 16 16 Blood Pressure 143/80 H 142/92 H 141/85 H Pulse Oximetry 2 L 100 100 Oxygen Delivery Nasal Cannula Nasal Cannula Nasal Cannula Oxygen Flow Rate 2 2 2 06/27/23 12:55 06/27/23 13:10 06/27/23 13:25 Temperature 37.1 C Pulse Rate 82 78 81 Respiratory Rate 16 16 16 Blood Pressure 139/81 135/88 123/70 Pulse Oximetry 100 100 100 Oxygen Delivery Nasal Cannula Nasal Cannula Nasal Cannula Oxygen Flow Rate 2 2 2 06/27/23 13:40 06/27/23 13:55 06/27/23 14:10 Temperature Pulse Rate 82 75 75 Respiratory Rate 18 16 17 Blood Pressure 123/83 126/81 133/73 Pulse Oximetry 100 100 100 Oxygen Delivery Nasal Cannula Nasal Cannula Room Air Oxygen Flow Rate 1 1 06/27/23 15:35 06/27/23 14:50 06/27/23 15:05 Temperature 36.1 C L 36.3 C L Pulse Rate 80 96 Respiratory Rate 16 20 Blood Pressure 137/71 126/77 Pulse Oximetry 97 95 Oxygen Delivery Room Air Oxygen Flow Rate 06/27/23 15:35 06/27/23 16:09 06/27/23 14:35 Temperature 36.5 C 36.6 C Pulse Rate 80 80 Respiratory Rate 18 19 Blood Pressure 125/68 114/63 Pulse Oximetry 96 93 Oxygen Delivery Room Air Oxygen Flow Rate 06/27/23 20:09 06/28/23 00:09 06/28/23 01:39 Temperature 36.9 C 36.4 C L Pulse Rate 76 75 Respiratory Rate 16 16 Blood Pressure 111/94 H 108/51 L Pulse Oximetry 97 96 Oxygen Delivery Room Air Oxygen Flow Rate 06/28/23 04:09 Temperature 36.2 C L Pulse Rate 64 Respiratory Rate 18 Blood Pressure 111/67 Pulse Oximetry 97 Oxygen Delivery Oxygen Flow Rate Intake/Output Intake/Output: Intake & Output 06/25/23 06/26/23 06/27/23 06/28/23 23:59 23:59 23:59 23:59 Intake Total 2450 1094 Output Total 30 Balance 2420 1094 Meds/Results Medications: Active Medications Generic Name Dose Route Start Last Admin Trade Name Freq PRN Reason Stop Dose Admin Acetaminophen 1,000 mg 06/27/23 12:36 06/28/23 05:12 Acetaminophen 500 Mg Tablet PO 1,000 mg Q6HR [facility] Administration Apixaban 2.5 mg 06/28/23 09:00 Apixaban 2.5 Mg Tablet PO Q12HR [facility] Atorvastatin Calcium 20 mg 06/27/23 21:00 06/27/23 21:18 Atorvastatin 20 Mg Tablet PO 20 mg HS [facility] Administration Buspirone HCl 2.5 mg/ 7.5 mg 06/27/23 21:00 06/27/23 21:18 Buspirone HCl 5 mg PO 7.5 mg Q12HR [facility] Administration Celecoxib 100 mg 06/28/23 09:00 Celecoxib 100 Mg Capsule PO DAILY [facility] Doxycycline Hyclate 100 mg 06/28/23 09:00 Doxycycline Hyclate 100 Mg Tablet PO Q12HR [facility] Ergocalciferol 50,000 units 06/28/23 09:00 Ergocalciferol 50,000 Units Capsule PO WEEKLY [facility] Fam
--- NOTE | 2023-06-28 06:47 | PM.DS ---
DS: Admitting Diagnosis Discharge Date 06/28 Admitting Diagnosis Right hip DJD DS: Discharge Diagnosis Discharge Diagnosis (1) Hip arthritis: Code(s): M16.10 - Unilateral primary osteoarthritis, unspecified hip Status: Acute DS: Summary Hospital Course Hospital Course: 73-year-old female who underwent right anterior total hip arthroplasty on 06/27. Underwent the procedure without complications. She did have quite a bit of pain immediately postop but this was improved. Pain was well controlled by early afternoon. She was up walking with physical therapy in halls and has been comfortable since. Patient is on scheduled Tylenol as well as oxycodone 5 mg. She is on Eliquis for DVT prophylaxis. Morning of postop day 1 patient was alert comfortable. Drain was out dressing was dry. Neurovascularly she is intact. She has been afebrile and vital signs have been stable throughout her recovery. She is weight-bearing as tolerated. Her vitamin-D was low, she has a history of osteopenia, it was at 18.7. We are supplementing this with high-dose vitamin-D weekly. She was also advised to start taking Citracal with vitamin-D on a daily basis. Patient will go home with 1 week of doxycycline. She is on a 10 day course of Celebrex. She also go home with Senokot MiraLax for constipation. Patient was advised she is to keep leg elevated home prevent swelling. She has any questions or concerns she is to call or see her at her appointments. Time Spent with Patient Time attestation: Total time spent providing and/or coordinating discharge services: DS: Data Data Completed and Pending Labs on day of discharge: Labs from last 24 hours 06/28/23 06/27/23 05:48 15:38 WBC 11.7 H RBC 3.59 L Hgb 10.6 L D Hct 32.4 L MCV 90.3 MCH 29.5 MCHC 32.7 RDW 13.2 Plt Count 213 MPV 11.6 H Immature Gran % (Auto) 0.3 Neut % (Auto) 72.5 Lymph % (Auto) 18.4 [place] % (Auto) 8.3 Eos % (Auto) 0.2 Baso % (Auto) 0.3 Lymph # (Auto) 2.14 [place] # (Auto) 1.0 H Eos # (Auto) 0.0 Baso # (Auto) 0.0 Abs Immat Gran (auto) 0.04 H Absolute Neuts (auto) 8.5 H Absolute Nucleated RBC 0.0 Nucleated RBC % 0.0 Sodium 135 L Potassium 3.4 Chloride 101 Carbon Dioxide 30 Anion Gap 4 L BUN 9 D Creatinine 0.70 Estim Creat Clear Calc 63 Estimated GFR > 60 Glucose 104 Calcium 8.0 L Vitamin D 25-Hydroxy 18.7 Discharge Plan Discharge Patient Disposition: Home, Self-Care Discharge Instructions: BRYAN ENRIQUEZ M.D [facility], [place] [address] [place] [id number] POST-OPERATIVE DISCHARGE INSTRUCTIONS ANTERIOR TOTAL HIP ARTHROPLASTY 1. Move toes/feet up and down every hour while awake. 2. Be up walking every hour while awake. 3. Use cane in hand opposite of side of hip surgery or walker as comfort allows. Avoid sitting in a chair unless eating, receiving visitors or using the toilet. 4. When resting, lie on back with leg elevated above heart to minimize swelling. Significant swelling could indicate a blood clot and if this occurs, call the office (or go to the ER) to have a venous ultrasound performed. 5. Wound Care: Keep dry sponge on wound for 2 weeks. Use minimal tape. 6. Follow weight bearing status as instructed. 7. May shower with dressing off. Stand Alone Forms: General Discharge Instructions Follow-up/Referrals: Bryan Enriquez MD [Physician] - Keep Reg. Scheduled Appt. Discharge Medications: New acetaminophen 500 mg Tablet 1,000 mg PO Q6HR Qty: 90 0RF Eliquis 2.5 mg Tablet 2.5 mg PO Q12HR Qty: 70 0RF sennosides-docusate sodium [Senokot-S] 8.6-50 mg Tablet 2 tab-cap PO BID Qty: 60 0RF celecoxib [Celebrex] 100 mg Capsule 100 mg PO DAILY Qty: 10 0RF polyethylene glycol 3350 [Miralax] 17 gram Powder In Packet 17 g PO QAM Qty: 30 0RF ergocalciferol (vitamin D2
--- NOTE | 2023-06-28 06:59 | PC.NURSE ---
Hemovac drain discontinued. Pt tolerated well without any difficulties. Continue to monitor.
--- NOTE | 2023-06-28 07:01 | PC.NURSE ---
Pt has been ambulating to restroom all night with walker. Pt ambulates well with walker. Pt denies dizziness/lightheadedness. Pt denies numbing and tingling.
[2023-06-28] MEDS: ceFAZolin 1 GM/NS 50 ML 1 GM/50 ML BAG IVPB (07:30)
[2023-06-28 07:31] VITALS: BP 120/65; PULSE 62; RESP 19; TEMP 36.2; O2SAT 99
[2023-06-28] MEDS: SENNA/DOCUSATE SODIUM TABLET 2 TAB PO (08:43)
[2023-06-28] MEDS: ERGOCALCIFEROL 50,000 UNITS CAPSULE 50000 UNITS PO (08:43)
[2023-06-28] MEDS: CELECOXIB 100 MG CAPSULE PO (08:44)
[2023-06-28] MEDS: APIXABAN 2.5 MG TABLET PO (08:44)
[2023-06-28] MEDS: busPIRone HCL 2.5 MG, busPIRone HCL 5 MG 7.5 MG PO (08:44)
[2023-06-28] MEDS: DOXYCYCLINE HYCLATE 100 MG TABLET PO (08:44)
[2023-06-28] MEDS: FAMOTIDINE 20 MG TABLET PO (08:44)
[2023-06-28] MEDS: polyethylene glycoL 3350 17 GM POWD.PACK PO (08:45)
--- NOTE | 2023-06-28 09:10 | PCOTNOTE ---
Patient refused treatment this session. Patient reported she had OT yesterday and is confident in her ability due to having her L done not that long ago. Patient reported she is ready to go home.
--- NOTE | 2023-06-28 10:13 | WPDANESPN ---
Anes - Prog Note Post-Op Date/Time: 06/28/23 10:13 Cardiovascular status: normal Respiratory status: normal Airway patency: baseline Mental status: baseline Post-Op hydration status: normal Vital Signs: Last Vital Signs Temp 36.2 C L 06/28/23 07:31 Pulse 62 06/28/23 07:31 Resp 19 06/28/23 07:31 BP 120/65 06/28/23 07:31 Pulse Ox 99 06/28/23 07:31 O2 Del Method Room Air 06/28/23 01:39 O2 Flow Rate 1 06/27/23 13:55 Pain Score (VAS): 2 I/O: Intake & Output 06/27/23 06/28/23 06/28/23 23:59 07:59 15:59 Intake Total 350 1344 530 Output Total 30 Balance 320 1344 530 Laboratory Tests 06/28/23 05:48 06/28/23 05:48 06/27/23 06/28/23 15:38 05:48 WBC 11.7 H RBC 3.59 L Hgb 10.6 L D Hct 32.4 L MCV 90.3 MCH 29.5 MCHC 32.7 RDW 13.2 Plt Count 213 MPV 11.6 H Immature Gran % (Auto) 0.3 Neut % (Auto) 72.5 Lymph % (Auto) 18.4 [place] % (Auto) 8.3 Eos % (Auto) 0.2 Baso % (Auto) 0.3 Lymph # (Auto) 2.14 [place] # (Auto) 1.0 H Eos # (Auto) 0.0 Baso # (Auto) 0.0 Abs Immat Gran (auto) 0.04 H Absolute Neuts (auto) 8.5 H Absolute Nucleated RBC 0.0 Nucleated RBC % 0.0 Sodium 135 L Potassium 3.4 Chloride 101 Carbon Dioxide 30 Anion Gap 4 L BUN 9 D Creatinine 0.70 Estim Creat Clear Calc 63 Estimated GFR > 60 Glucose 104 Calcium 8.0 L Vitamin D 25-Hydroxy 18.7 Post-procedural complaints: none Patient Feedback: Patient satisfied with anesthetic care.
== END 2023-06-28 10:40 | disposition home or self-care (01) ==
LOC: ANHSURGERY 06:15 → ANH3MEDSUR 14:30
PROVIDERS: Physician Assistant Surgical; PCP Physician Assistant; Visit Provider Orthopaedic Surgery
PROC: (CPT 27130; principal; 2023-06-27 07:30)
DX: M16.11 Unilateral primary osteoarthritis, right hip (principal); G89.18 Other acute postprocedural pain; E55.9 Vitamin D deficiency, unspecified; M85.80 Other specified disorders of bone density and structure, unspecified site; E78.5 Hyperlipidemia, unspecified; G47.33 Obstructive sleep apnea (adult) (pediatric); H40.9 Unspecified glaucoma; F41.9 Anxiety disorder, unspecified; Z85.3 Personal history of malignant neoplasm of breast; E66.9 Obesity, unspecified; Z68.32 Body mass index [BMI] 32.0-32.9, adult; Z79.899 Other long term (current) drug therapy
CPT/HCPCS: 27130; 36415; 73501; 80048; 80307; 82040; 82306; 83036; 85025; 86850; 86900; 86901; 87081; 93005; 97110; 97116; 97161; 97165; 97530; 97535; 99199; A9270; C1776; J0171; J0690; J1100; J1170; J1885; J2250; J2270; J2405; J2704; J2795; J3010; J3370; J7120

== ENCOUNTER → 2023-10-05 15:30 | Outpatient (CLI) | payer MEDICARE, SELFPAY ==
--- NOTE | ~2023-10-05 | CT_ITS ---
CT of the Abdomen: Indication: Family history of pancreatic cancer Technique: 2.5 mm axial scans were obtained through the abdomen following intravenous administration of 100 cc of Omnipaque 350. Dose reduction technique was used on this scan by utilizing automated ex posure control and iterative reconstruction technique. The dose-length product (DLP) was 430.72 mGy-c m. Findings: Scans through the lung bases are unremarkable. The liver, spleen, pancreas, gallbladder, adrenals and kidneys are within normal limits. No evidence of aortic aneurysm. No lymphadenopathy. Visualized bowel loops are unremarkable. No ascites. Impression: No significant abnormalities seen. Reviewed, dictated and finalized at location M. FORMER Impression: No significant abnormalities seen.
[2023-10-05 15:49] LABS: Estimated Glomerular Filt Rate > 60
== END ==
PROVIDERS: PCP Physician Assistant; Visit Provider Physician Assistant
DX: Z85.3 Personal history of malignant neoplasm of breast (principal); Z80.0 Family history of malignant neoplasm of digestive organs
CPT/HCPCS: 74160; Q9967

== ENCOUNTER 2023-10-19 10:20 | Outpatient (CLI) | payer MEDICARE, SELFPAY ==
--- NOTE | ~2023-10-19 | NM_ITS ---
EXAMINATION: NM hepatobiliary wo pharm DATE: 10/19/2023 12:53 INDICATION: Chronic diarrhea COMPARISON: None. TECHNIQUE: 5.2 mCi Tc-99m mebrofenin (Choletec) was administered intravenously. Scintigraphic images of the abdomen were obtained for one hour. At the 1 hour time point, the patient drank 8 oz Ensure, and imaging was continued for 60 minutes. Gallbladder ejection fraction was calculated by the technol ogist. FINDINGS: There is normal clearance of radiotracer from the blood pool. There is homogeneous tracer u ptake by the liver. Activity progresses to the bowel and gallbladder. The gallbladder ejection fract ion (GBEF) is 58%. Note that with this technique, normal GBEF >= 33%. IMPRESSION: 1. Normal hepatobiliary scan Reviewed, dictated and finalized at location A. [employer]
== END 2023-10-19 10:21 | disposition home or self-care (01) ==
PROVIDERS: PCP Physician Assistant; Visit Provider Physician Assistant
DX: K52.9 Noninfective gastroenteritis and colitis, unspecified (principal)
CPT/HCPCS: 78226; A9537

== ENCOUNTER 2024-07-25 13:04 | Outpatient (CLI) | payer MEDICARE, SELFPAY ==
--- NOTE | ~2024-07-25 | MM_ITS ---
EXAMINATION: MM screening lucio LT w david HISTORY: Screening TECHNIQUE: Craniocaudal and mediolateral oblique 3-D tomosynthesis images were obtained and synthetic 2-D images were generated. CAD analysis was submitted and interpreted. COMPARISON: Comparison to multiple prior studies sequentially, with oldest reviewed study dated 07/21. BREAST PARENCHYMAL COMPOSITION: Not dense: There are scattered areas of fibroglandular density. FINDINGS: Developing nodular asymmetries of the left breast in the periareolar location. There are st able benign-appearing clustered calcifications in the upper outer quadrant of the left breast posteri olive. No skin thickening or nipple inversion. IMPRESSION: 1. Developing nodular asymmetries of the left breast. 2. Additional spot compression and mediolateral views with possible follow-up breast ultrasound recom mended. BI-RADS CATEGORY 0 - INCOMPLETE STUDY, NEED ADDITIONAL IMAGING EVALUATION. Reviewed, dictated and finalized at location B. IMPRESSION: 1. Developing nodular asymmetries of the left breast. 2. Additional spot compression and mediolateral views with possible follow-up b reast ultrasound recommended. BI-RADS CATEGORY 0 - INCOMPLETE STUDY, NEED ADDITIONAL IMAGING EVALUATION.
== END 2024-07-25 13:05 | disposition home or self-care (01) ==
PROVIDERS: PCP Physician Assistant; Visit Provider Physician Assistant
DX: Z12.31 Encounter for screening mammogram for malignant neoplasm of breast (principal); R92.8 Other abnormal and inconclusive findings on diagnostic imaging of breast
CPT/HCPCS: 77063; 77067

== ENCOUNTER 2024-08-22 09:15 | Outpatient (CLI) | payer MEDICARE, SELFPAY ==
--- NOTE | ~2024-08-22 | MMUS_ITS ---
EXAMINATION: MM diagnostic lucio LT w david, US breast LT complete HISTORY: Follow-up left breast asymmetries TECHNIQUE: Additional 3-D tomosynthesis images of the left breast were performed and synthetic 2-D im ages were generated. CAD analysis was submitted and interpreted. High resolution complete left breast ultrasound was performed. COMPARISON: Comparison to multiple prior studies sequentially, with oldest reviewed study dated 05/2018. BREAST PARENCHYMAL COMPOSITION: Not dense: There are scattered areas of fibroglandular density. FINDINGS: MAMMOGRAPHIC FINDINGS: There are nodular asymmetries in the periareolar location of the left breast. There is a discrete mas s in the lower central left breast anteriorly near the nipple. There are no suspicious calcifications or architectural distortion. ULTRASOUND: Complete US of all 4 quadrants of the left breast/s and retroareolar region was reviewed. There are m ildly prominent ducts as well as a few periareolar cysts, largest at 3:00 measuring 5 mm. No suspicio us masses to suggest malignancy. IMPRESSION: 1. No evidence for malignancy in the left breast. Benign findings. 2. Routine yearly screening mammogram and regular clinical breast examination are recommended. BI-RADS Category 2: Benign finding(s). Reviewed, dictated and finalized at location B. IMPRESSION: 1. No evidence for malignancy in the left breast. Benign findings. 2. Routine yearly screening mammogram and regular clinical breast examination a re recommended. BI-RADS Category 2: Benign finding(s).
== END 2024-08-22 09:16 | disposition home or self-care (01) ==
LOC: MICIMG 09:15
PROVIDERS: PCP Physician Assistant; Visit Provider Physician Assistant
DX: R92.8 Other abnormal and inconclusive findings on diagnostic imaging of breast (principal)
CPT/HCPCS: 76641; 77061; 77065; G0279

== ENCOUNTER 2025-02-20 09:15 | Outpatient (CLI) | payer MEDICARE, SELFPAY ==
--- NOTE | ~2025-02-20 | CT_ITS ---
EXAMINATION: CT sinus wo con DATE: 02/20/2025 09:44 INDICATION: Chronic maxillary sinusitis. TECHNIQUE: Computed tomography (CT) of the paranasal sinuses was performed without intravenous contra st. The dose-length product was 256.12 mGy-cm. Automated exposure control and iterative reconstructio n technique were employed. COMPARISON: None FINDINGS: No significant mucosal thickening of the sinuses. No air-fluid levels. Ostiomeatal units ar e patent. Rightward nasal septal deviation. No mucoperiosteal reaction. Mastoids are pneumatized. No midline shift. IMPRESSION: 1. No significant sinus disease. Reviewed, dictated and finalized at location A.
== END 2025-02-20 09:16 | disposition home or self-care (01) ==
LOC: MICIMG 09:16
PROVIDERS: PCP Physician Assistant; Visit Provider Otolaryngology
DX: J32.0 Chronic maxillary sinusitis (principal)
CPT/HCPCS: 70486

== ENCOUNTER 2025-02-20 09:18 | Outpatient (CLI) | payer MEDICARE, SELFPAY ==
--- NOTE | ~2025-02-20 | XR_ITS ---
Lumbosacral Spine: AP and lateral views Clinical History: Pain Findings: The normal lordotic curve is maintained. The vertebral bodies and posterior elements are i ntact. The intervertebral disc spaces are preserved. There is severe facet arthropathy throughout th e lumbar spine. The sacroiliac joints are normally outlined. Impression: Severe facet arthropathy throughout the lumbar spine. Reviewed, dictated and finalized at location . Impression: Severe facet arthropathy throughout the lumbar spine.
== END 2025-02-20 09:19 | disposition home or self-care (01) ==
LOC: MICIMG 09:21
PROVIDERS: PCP Physician Assistant
DX: M81.0 Age-related osteoporosis without current pathological fracture (principal)
CPT/HCPCS: 72100

== ENCOUNTER 2025-07-31 10:23 | Outpatient (CLI) | payer MEDICARE, SELFPAY ==
--- NOTE | ~2025-07-31 | MM_ITS ---
EXAMINATION: MM screening lucio LT w david HISTORY: Screening TECHNIQUE: Craniocaudal and mediolateral oblique 3-D tomosynthesis images were obtained and synthetic 2-D images were generated. CAD analysis was submitted and interpreted. COMPARISON: Comparison to multiple prior studies sequentially, with oldest reviewed study dated 11/09/2019. BREAST PARENCHYMAL COMPOSITION: Not dense: There are scattered areas of fibroglandular density. FINDINGS: There is no evidence of suspicious mass, calcification, or architectural distortion to suggest malignancy in either breast. There has been no suspicious interval change. IMPRESSION: 1. No mammographic evidence of malignancy. 2. Recommend routine screening mammography in one year. BI-RADS Category 1: Negative Reviewed, dictated and finalized at location B.
== END 2025-07-31 10:24 | disposition home or self-care (01) ==
PROVIDERS: PCP Physician Assistant; Visit Provider Physician Assistant
DX: Z12.31 Encounter for screening mammogram for malignant neoplasm of breast (principal)
CPT/HCPCS: 77063; 77067